=== PATIENT | male | born 1945 | race Caucasian/White ===

== ENCOUNTER 2017-06-11 19:13 | Observation (INO) | payer OTHER ==
--- NOTE | 2017-06-11 19:19 | EDPHY ---
H & P HPI/ROS: CHIEF COMPLAINT: Near-syncope. HISTORY OF PRESENT ILLNESS: The patient is a 71-year-old male with a history of atrial fibrillation, hypertension, and cardiac stent at age 53 who presents via EMS after a near-syncopal episode at a restaurant just prior to arrival. He describes suddenly feeling lightheaded and "strange" while at the table and was able to excuse himself and lie down on the floor. He then became diaphoretic and dizzy for 15 minutes before paramedics arrived. He denies chest pain, shortness of breath, vomiting, diarrhea, recent sickness. He has had 4 ablations for atrial fibrillation in the past, the last in 2016. He does note using a small amount of THC prior to entering the restaurant, which he has done before (same product, without adverse effects). He denies cardiac family history. REVIEW OF SYSTEMS: A ten point review of systems was performed and is negative with the exception of the items mentioned in the HPI. Source: Patient Exam Limitations: No limitations - Medical/Surgical History PMH: 1. Atrial fibrillation. 2. Cardiac stent. 3. Knee replacement. 4. Hypertension. - Social History Alcohol Use: None Drug Use: Marijuana Additional Social History: 1. . 2. Lives in [place]. 3. Nonsmoker. 4. No alcohol use. 5. Uses marijuana recreationally. - Physical Exam Exam: General Appearance: Alert. Vital signs reviewed. Eyes: Pupils equal and round, no conjunctival injection, no discharge. Anicteric. ENT, Mouth: Mucous membranes are moist, no oropharyngeal erythema or edema. Neck: No lymphadenopathy, supple. Respiratory: Lungs are clear to auscultation; no wheezes, rales, or rhonchi. Cardiovascular: Regular rate and rhythm; no murmur, rub, or gallop. Gastrointestinal: Abdomen is soft and nontender, no masses or organomegaly, bowel sounds normal. Skin: Warm and dry, no rashes on exposed skin, normal color. Back: Nontender to palpation over the thoracolumbar spine. No CVAT. Extremities: No lower extremity edema, no calf tenderness or swelling. Neurological: Alert and oriented. Moving all four extremities easily and equally. Cranial nerves II through XII are examined and are intact (visual acuity not tested). Strength is 5 over 5 bilaterally with testing of all major motor groups. Sensation is intact to light touch over all 4 extremities. Psychiatric: Normal affect. Constitutional: Initial Vital Signs Temperature (C) 36.5 C 06/11/17 19:13 Heart Rate 63 06/11/17 19:13 Respiratory Rate 18 06/11/17 19:13 Blood Pressure 111/73 06/11/17 19:13 O2 Sat (%) 97 06/11/17 19:13 O2 Delivery Mode Room Air O2 (L/minute) 2 Allergies/Adverse Reactions: penicillin G Allergy (Verified 06/11/17 19:31) Sulfa (Sulfonamide Antibiotics) Allergy (Verified 06/11/17 19:31) Home Medications: Medication Instructions Recorded Apixaban [Eliquis] 5 mg PO BID 06/11/17 Aspirin EC [Aspirin EC 81 mg (*)] 81 mg PO HS 06/11/17 Atorvastatin Calcium [Lipitor 20 20 mg PO DAILY 06/11/17 mg (*)] Losartan/Hydrochlorothiazide 1 tab PO DAILY 06/11/17 [Losartan-Hctz 100-25 mg Tab] Metformin HCl [Metformin HCl ER] 500 mg PO DAILY 06/11/17 Metoprolol Succinate 50 mg PO DAILY 06/11/17 Medical Decision Making - Diagnostics EKG Interpretation: EKG reviewed by me in [facility]. It shows sinus rhythm with rate of 65. LAFB. QTcF 477. Imaging: I viewed and interpreted images myself ED Course/Re-evaluation: 71-year-old male with a significant cardiac history presents via EMS after a near-syncopal episode just prior to arrival. An IV was established and labs ordered. Chest x-ray and EKG ordered. Study: PA and Lateral Chest X-ray Indication: Near syncope Results: I viewed the images myself on the PACS system. My interpretation of the images is: no acute cardiopulmonary process. See Imaging Results section for official radiologist report. 2021: Reassessed patient. Labs WNL--no sign of blood loss. BUN and creat are elevated--31 and 1.4--and he might be dehydrated. NS IV being administered in ED. He has h/o afib, is in sinus rhythm now. Cardiac arrhythmia remains a possible etiology. Discussed workup thus far. Vasovagal syncope is also a possibility. I recommended admission to him for observation after syncope and he is in agreement. It is possible that ariel's event was related to marijuana --but he has never had anything like this happen and reports smoking a very small quantity of a marijuana that he has used in the past without problems. No alcohol tonight (he does not drink alcohol). 2028: Consulted with hospitalist. She accepts admission. - Data Points Laboratory Results: Laboratory Results 06/11/17 19:40 06/11/17 19:15 Medications Given: Discontinued Medications Apixaban (Eliquis) 5 mg PO BID AIDAN Stop: 12/09/17 00:14 Last Admin: 06/12/17 10:16 Dose: Not Given Atorvastatin Calcium (Lipitor) 20 mg PO DAILY AIDAN Stop: 12/09/17 08:59 Last Admin: 06/12/17 10:16 Dose: Not Given HCTZ/Losartan Potassium (Hyzaar 50/12.5) 2 tab PO DAILY AIDAN Stop: 12/09/17 08:59 Last Admin: 06/12/17 10:16 Dose: Not Given Sodium Chloride (Ns) 1,000 mls @ 0 mls/hr IV EDNOW ONE; Wide Open PRN Reason: Protocol Stop: 06/11/17 19:57 Last Admin: 06/11/17 20:10 Dose: 1,000 mls Sodium Chloride (Ns) 1,000 mls @ 100 mls/hr IV CONT AIDAN Stop: 12/08/17 22:59 Last Admin: 06/11/17 23:45 Dose: 1,000 mls Metformin HCl (Glucophage Xr) 500 mg PO DAILY AIDAN Stop: 12/09/17 08:59 Last Admin: 06/12/17 10:16 Dose: Not Given Metoprolol Succinate (Toprol Xl) 50 mg PO DAILY AIDAN Stop: 12/09/17 08:59 Last Admin: 06/12/17 10:16 Dose: Not Given Departure - Departure Disposition: [facility] Acute Clinical Impression: Near syncope Condition: Good Report Scribed for: Alisha Corbett Report Scribed by: Irvin Gray Date of Report: 06/11/17 Time of Report: 19:27 Physician Review and Approval Statement: 06/14/17 08:30 Portions of this chart were entered by a manager of medical. I personally performed the history, physical exam, and decision making. I have reviewed the chart and agree with the documentation, as evidenced by my signature.
--- NOTE | 2017-06-11 19:25 | CPEKG ---
Heart Rate: 65 RR Interval: 923 P-R Interval: 152 QRSD Interval: 96 QT Interval: 464 QTC Interval: 483 P [place]: 48 QRS [place]: -65 T Wave [place]: 35 EKG Severity - ABNORMAL ECG - EKG Impression: SINUS RHYTHM EKG Impression: LEFT ANTERIOR FASCICULAR BLOCK EKG Impression: BORDERLINE PROLONGED QT INTERVAL Electronically Signed By: Alisha Corbett 12-Jun-2017 00:03:55
[2017-06-11 19:47] LABS: ANION GAP 14 mEq/L (8-16); CARBON DIOXIDE 24 mEq/l (22-31); CHLORIDE 104 mEq/L (97-110); CREATININE 1.4 mg/dL (0.7-1.3); GLOMERULAR FILTRATION RATE 50; GLUCOSE 101 mg/dL (70-100); SODIUM 142 mEq/L (134-144)
[2017-06-11 19:50] LABS: % IMMATURE GRANULYOCYTES 0.3 % (0.0-1.1); ABSOLUTE IMMATURE GRANULOCYTES 0.03 10^3/uL (0.00-0.10); ADD DIFF? NO; ADD MORPH? NO; ADD SCAN? NO; ATYPICAL LYMPHOCYTE FLAG 0 (0-99); FRAGMENT RBC FLAG 0 (0-99); HEMATOCRIT 41.4 % (40.0-51.0); HEMOGLOBIN 14.1 g/dL (13.7-17.5); LEFT SHIFT FLG 0 (0-99); LIPEMIA HEMOLYSIS FLAG 90 (0-99); MEAN CELL HEMOGLOBIN 31.5 pg (27.9-34.1); MEAN CELL HEMOGLOBIN CONCENTR. 34.1 g/dL (32.4-36.7); MEAN CELL VOLUME 92.6 fL (81.5-99.8); MEAN PLATELET VOLUME 10.1 fL (8.7-11.7); PLATELET CLUMPS FLAG 0 (0-99); PLATELET COUNT 208 10^3/uL (150-400); RED BLOOD CELL COUNT 4.47 10^6/uL (4.40-6.38); RED CELL DISTRIBUTION WIDTH 13.1 % (11.5-15.2)
[2017-06-11] MEDS ORDERED: NS 1,000 ML IV ONE (19:56)
[2017-06-11 19:58] LABS: TROPONIN I < 0.012 ng/mL (0-0.034)
[2017-06-11] MEDS ORDERED: ACETAMINOPHEN 325 MG TAB PO PRN (22:59)
[2017-06-11] MEDS ORDERED: ONDANSETRON 4 MG/2 ML VIAL IVP PRN (22:59)
[2017-06-11] MEDS ORDERED: NS 1,000 ML IV SCH (23:00)
[2017-06-11 23:31] VITALS: RESP 16
[2017-06-12] MEDS: APIXABAN 5 MG TAB PO SCH ×2 (00:20→10:16)
[2017-06-12 06:16] VITALS: O2SAT 93
[2017-06-12 06:24] LABS: ANION GAP 9 mEq/L (8-16); CALCIUM 8.5 mg/dL (8.5-10.4); CARBON DIOXIDE 22 mEq/l (22-31); CHLORIDE 111 mEq/L (97-110); CREATININE 1.1 mg/dL (0.7-1.3); GLOMERULAR FILTRATION RATE > 60; GLUCOSE 102 mg/dL (70-100); POTASSIUM 3.5 mEq/L (3.5-5.2); SODIUM 142 mEq/L (134-144)
[2017-06-12 06:37] LABS: TROPONIN I < 0.012 ng/mL (0-0.034)
[2017-06-12 07:38] VITALS: BP 125/73; PULSE 53; TEMP 97.5
[2017-06-12] MEDS ORDERED: APIXABAN 5 MG TAB PO SCH (09:00)
[2017-06-12] MEDS ORDERED: METOPROLOL SUCCINATE XR 50 MG TAB PO SCH (09:00)
[2017-06-12] MEDS ORDERED: LOSARTAN/HCTZ 50/12.5 1 TAB PO SCH (09:00)
[2017-06-12] MEDS ORDERED: metFORMIN SR 500 MG TAB PO SCH (09:00)
[2017-06-12] MEDS ORDERED: ATORVASTATIN CALCIUM 20 MG TAB PO SCH (09:00)
--- NOTE | 2017-06-12 10:27 | PDDCSUM ---
Discharge Summary Discharge Summary: Dates of service: 06/11-06/12/17 Discharge dx: # near syncope # rosalinda # atrial fibrillation # CAD # htn Consultations/procedures: none Hospital course by problem: # near syncope: in setting of likely volume depletion given rosalinda, smoking a very strong marijuana oil and what sounds consistent with a vasovagal episode with typical prodromal symptoms, associated diaphoresis and resolution of sxs with becoming recumbent. No recurrent sxs since arrival, ecg and tele wnl, trops neg x 3, ddimer negative. # rosalinda: resolved with fluid resuscitation, BUN: creat ratio c/w hypovolemia as etiology # chronic medical issues: a fib (not noted on ecg here), CAD, HTN--will f/u with [facility] home f/u with pcp/cardiology > 35 min spent in dc more than half in face to face counseling of patient and his
--- NOTE | 2017-06-12 11:10 | GHP ---
[f rep st] HISTORY AND PHYSICAL DATE OF ADMISSION: 06/11/2017 CHIEF COMPLAINT: Near syncope. HISTORY: The patient is a 71-year-old male who lives in [place] and was in [place] to go out to dinner. Just prior to going into the restaurant, he did take a hit of some marijuana oil just to he lp him relax for dinner as he does not drink alcohol. He has done this intermittently without any s dax effects for the last 6 months. Immediately after getting out of the car, he felt a little dizzy going into the restaurant. Sitting at the table this lightheadedness progressed. He felt disconne cted from his environment. He felt very faint at the table and did not want to pass out there, and so got up to go to the restroom. He did not make it to the restroom. As he was walking by the bar, he notified a gentleman sitting at the bar that he was going to pass out and then went to his knees . He fell to the ground in a controlled manner so he did not hit his head. He never passed out com pletely. He was lying on the floor and EMS was called. He became profusely diaphoretic, and accord ing to his he was sopping wet with sweat. This whole episode lasted 5-10 minutes, at which poi nt he completely resolved and now feels back to normal. He has never had an episode like this befor e. He works out frequently without any symptoms. He has a insurance healthcare representative at [facility], Dr. Wheat, whom he follows with very closely. He does frequent thallium stress tests to follow up his previous coronary artery disease and stent, and has always "passed his thalliums with flying colors." He deal s had 4 cardiac ablations. His last one was 6 months ago. He had a full cardiac testing just prior to [facility] in relation to his ablation. The last time he wore a Holter monitor was in 2008. PAST MEDICAL HISTORY: 1. Atrial fibrillation, status post ablation x4. The last one just before [place]. 2. Hypertension. 3. Coronary artery disease status post stent to the right coronary artery in his early 50s, with fr equent followup thallium scans within normal limits, following closely with Dr. Szymanski at [facility]. MEDICATIONS: Please see computer record for full detailed list. He takes both Eliquis and metoprol ol. ALLERGIES: To penicillin and sulfa. SOCIAL HISTORY: No smoking of tobacco. He smokes marijuana recreationally. No alcohol. He lives in [place], visiting [place] just to go out for dinner. REVIEW OF SYSTEMS: Complete review of systems obtained. Review of systems is negative regarding co nstitutional, HEENT, GI, pulmonary, cardiovascular, , hematology, skin, musculoskeletal, endocrine , psych. Pertinent positives and negative as noted in the HPI. FAMILY HISTORY: Reviewed and noncontributory for the presenting complaint. PHYSICAL EXAMINATION: GENERAL: A well-developed, well-nourished male in no acute distress. VITAL SIGNS: Temperature is 36.5, pulse 64, blood pressure 137/78, saturating 96% on 2 L. EYES: Normal conjunctiva. Pupils equal, round and react to light. ENT: Normal ears and nose. Hearing intact. Normal teeth. Oropharynx moist. NECK: Trachea midline. No thyromegaly. CHEST: Normal effort. LUNGS: Clear to auscultation and percussion bilaterally. CARDIOVASCULAR SYSTEM: Regular rhythm. No murmur. No lower extremity edema. ABDOMEN: Soft, nontender. No hepatosplenomegaly. SKIN: W arm, dry, intact. No rash. MUSCULOSKELETAL: No cyanosis or clubbing. Strength is 5/5 upper and l ower extremities. NEUROLOGIC: Cranial nerves intact. Normal sensation to light touch. PSYCHOSOCI AL: Alert and oriented x3. Normal mood and affect. Normal judgment. Normal memory. LABORATORY DATA: White count 9.07, hematocrit 41.4, platelets 208. Sodium 142, potassium 4.0, chlo ride 104, bicarb 24, BUN 31, creatinine 1.4, glucose 101. Troponins negative. D-dimer is negative. IMAGING: EKG viewed by me, and my personal interpretation is normal sinus rhythm. No ST or T-wave changes. Chest x-ray is negative. ASSESSMENT AND PLAN: 1. Near syncope. He has an extensive cardiac history. However, he follows closely at [facility] an d is up to date with recent thalliums and echocardiograms related to his recent ablation. My highes t suspicion is this is a reaction to the marijuana oil that he smoked. He may also be a little dry with his creatinine being a little up. Arrhythmia etiology of syncope is also in the differential. Whether or not this may have been a vasovagal event or he is potentially at risk for bradycardia, chance islasen his many ablations in the past. Will check orthostatics, a TSH, serial troponins and watch him on telemetry. Will continue his metoprolol and follow heart rate closely. He does not desire repe at testing with echocardiogram or thallium since he has had these recently, and wishes instead to fo llow up closely with Dr. Szymanski, his usual insurance healthcare representative. Consideration for outpatient event monitor w ith his primary insurance healthcare representative could be considered. 2. Atrial fibrillation status post ablation. Will continue his metoprolol and Eliquis, and watch h im on telemetry. 3. Coronary artery disease status post distant stent. My suspicion is low that this event represen ts coronary ischemia, but we will follow troponins and recheck an EKG in the morning. He is up to d ate with recent outpatient thallium, so I do not think it needs to be repeated at this time. He jennifer l follow up closely with his usual insurance healthcare representative to determine whether or not something more needs to be done as an outpatient. He desires to go home in the morning if overnight observation is within n ormal limits. 4. Deep venous thrombosis prophylaxis. He is chronically on Eliquis, which will be continued. CODE STATUS: Full. ADMISSION STATUS: Will admit to observation. Anticipate discharge home tomorrow if everything is s table. /[id number]/MODL
[2017-06-12] MEDS ORDERED: ASPIRIN EC 81 MG TAB PO SCH (21:00)
== END 2017-06-12 11:18 | disposition home or self-care (01) ==
LOC: F2W 21:04
PROVIDERS: ADMIT Hospitalist; ATTEND Internal Medicine
DX: R55 Syncope and collapse (principal); F12.90 Cannabis use, unspecified, uncomplicated; N17.9 Acute kidney failure, unspecified; I48.91 Unspecified atrial fibrillation; I25.10 Atherosclerotic heart disease of native coronary artery without angina pectoris; I10 Essential (primary) hypertension; Z95.5 Presence of coronary angioplasty implant and graft; Z96.659 Presence of unspecified artificial knee joint
CPT/HCPCS: 71020; 93005; G0378